=== PATIENT | male | born 1955 | race Caucasian/White ===

== ENCOUNTER → 2017-11-19 | Outpatient (CLI) | payer OTHER ==
[~2017-11-19] MED LIST: IOPAMIDOL 370 MG/ML 200 ML INFUS..BTL INJ ONE; SODIUM CHLORIDE 0.9% 50ML 50 ML ONE
[2017-11-19 12:38] LABS: BLOOD UREA NITROGEN 13 mg/dL (8-26); BUN/CREATININE RATIO 13 (6-25); EST GLOMERULAR FILTRATION RATE > 60 ML/MIN (60-)
--- NOTE | 2017-11-19 13:29 | Diagnostic Imaging Report ---
PROCEDURE:CT ABDOMEN WITH CONTRAST COMPARISON:None. INDICATIONS:FATTY LIVER TECHNIQUE:Routine protocol Volumetric CT abdomen and pelvis after administration of 100 mL Isovue-370 intravenous contrast. Multiplanar reformatted images. DLP: 401.78 FINDINGS: Clear lung bases. No pleural effusions. Normal heart size. Liver: Diffuse low-attenuation (62 HU). Smooth margin. Midclavicular craniocaudal span 11 cm. Gallbladder: Normal Pancreas: Normal Spleen: Normal. Span 12 cm (140 HU). Adrenal glands: Normal Kidneys: Normal Bowel: Image segments are normal Peritoneum: Normal Vasculature: Normal caliber. There is mild ostial calcification at the celiac and renal arteries. Lymph nodes: Normal Skeleton: Intact. Degenerative disc disease at L4-L5 with complete loss of disc space height. Soft tissues: Fat-containing umbilical hernia. Otherwise, normal CONCLUSION: Hepatic steatosis without evidence of cirrhosis or portal hypertension. Dictated by: Zion Mayes M.D. on 11/19/2017 at 13:28 Electronically approved by: Zion Mayes M.D. on 11/19/2017 at 13:28
--- NOTE | 2017-11-19 18:49 | Diagnostic Imaging Report ---
Exam: Neck MRI without IV contrast History: Thyroid cyst seen on ultrasound. Comparison studies: None. Technique: Sagittal, axial and coronal T1 weighted, axial and coronal STIR and axial DWI. IV contrast: None Findings: Evaluation of the soft tissues is somewhat limited in the absence of IV contrast. Evaluation of the thyroid gland is also limited by pulsation artifact on the axial STIR sequence. In spite of this limitation: Airway: Patent Masses: None. Lymph nodes: No radiographically significant adenopathy. Vessels: The carotid and vertebral arteries as well as the jugular veins are patent. Glands: Submandibular: Normal in size and homogeneous. No masses. Parotid: Normal in size and homogeneous. No masses. Thyroid: Normal in size and homogeneous. No mass identified. Reported thyroid cyst is not visualized on MRI. Orbits: The globes are grossly intact. There are no intra-or extraconal abnormalities. The extraocular muscles and optic nerves are symmetric. Included paranasal sinuses: Clear aside from mild mucosal thickening along the maxillary sinus alveolar recesses. Vasculature: The flow voids of the vertebral arteries and carotid arteries are maintained. Temporal bones: No abnormal T2 hyperintense signal changes. Skull base and included facial bones: No bone marrow abnormalities. Cervical spine: Mildly degenerated C5-C6 and C6-C7 discs with disc ossify complexes which indent the thecal sac but do not result in canal stenosis. Moderate right and mild left foraminal stenosis at C5-C6 due to uncovertebral arthrosis. Mild bilateral foraminal stenosis at C6-C7 due to uncovertebral arthrosis. IMPRESSION: 1. No mass identified. 2. Specifically, no thyroid lesion is identified by MRI. Reported thyroid cyst may be present but not visualized by MRI. Follow-up thyroid ultrasound could be performed to document stability. Signed by: Dr. Alessandro Lawrence M.D. on 11/19/2017 6:45 PM
== END ==
LOC: MRI 10:42
PROVIDERS: ATTEND Family Medicine
DX: K76.0 Fatty (change of) liver, not elsewhere classified (principal); N20.0 Calculus of kidney; E04.1 Nontoxic single thyroid nodule; E78.5 Hyperlipidemia, unspecified
CPT/HCPCS: 36415; 70540; 74160; 82565; 84520; Q9967

== ENCOUNTER → 2017-12-10 | Outpatient (CLI) | payer OTHER ==
--- NOTE | 2017-12-10 17:13 | Diagnostic Imaging Report ---
PROCEDURE: US THYROID COMPARISON: None. INDICATIONS:THYROID NODULE/CYST TECHNIQUE: Transverse and longitudinal oliver-scale sonographic images of the thyroid were obtained and supplemented with color doppler. FINDINGS: Right thyroid lobe: 4.7 x 1.8 x 1.5 cm, normal in size. Left thyroid lobe: 3.9 x 1.6 x 1.6 cm, normal in size. Inferior pole 0.5 x 0.4 x 0.5 cm anechoic cyst (TR1). Isthmus: 0.4 cm in thickness, normal in size. CONCLUSION: Left thyroid lobe 0.5 cm cyst which does not meet criteria for FNA or imaging follow up according to ACR 2017 TI-RADS guidelines. Dictated by: Dani Ibrahim M.D. on 12/10/2017 at 17:13 Electronically approved by: Dani Ibrahim M.D. on 12/10/2017 at 17:13
== END ==
LOC: US 16:07
PROVIDERS: ATTEND Family Medicine
DX: E07.9 Disorder of thyroid, unspecified (principal)
CPT/HCPCS: 76536

== ENCOUNTER 2021-06-03 22:01 | Observation (INO) | payer MEDICARE, OTHER ==
[~2021-06-03] VITALS: Ht 170.2 cm; Wt 81.6 kg
[2021-06-03 22:45] LABS: BASOPHILS % 0.4 % (0.0-1.0); EOSINOPHILS # (AUTO) 0.1 (0.0-0.4); EOSINOPHILS % 0.9 % (0.0-6.0); HEMATOCRIT 43.5 % (38.2-49.6); HEMOGLOBIN 13.9 g/dL (14.0-18.0); LYMPHOCYTES # (AUTO) 1.2 (1.0-3.2); LYMPHOCYTES % 17.9 % (18.0-39.1); MEAN CORPUSCULAR HEMOGLOBIN 30.8 pg (28-32); MEAN CORPUSCULAR VOLUME 96.2 fL (81-99); MONOCYTES # (AUTO) 0.3 (0.2-0.8); MONOCYTES % 4.4 % (4.4-11.3); NEUTROPHILS # (AUTO) 5.2 (2.1-6.9); PLATELET COUNT 185 x10e3/uL (140-360); RED BLOOD COUNT 4.52 x10e6/uL (4.3-5.7)
[2021-06-03 23:05] LABS: ALANINE AMINOTRANSFERASE 38 IU/L (0-55); ALBUMIN 4.4 g/dL (3.5-5.0); ALBUMIN/GLOBULIN RATIO 1.5 (0.8-2.0); ALKALINE PHOSPHATASE 45 IU/L (40-150); ANION GAP 16.7 mmol/L (8-16); BLOOD UREA NITROGEN 15 mg/dL (7-26); BUN/CREATININE RATIO 15 (6-25); CALCIUM 9.4 mg/dL (8.4-10.2); CARBON DIOXIDE 25 mmol/L (22-29); CHLORIDE 103 mmol/L (98-107); CREATINE KINASE 63 IU/L (30-200); CREATININE, SERUM 0.99 mg/dL (0.72-1.25); EST GLOMERULAR FILTRATION RATE 75 ML/MIN (60-); GLUCOSE 129 mg/dL (74-118); POTASSIUM 3.7 mmol/L (3.5-5.1); SODIUM 141 mmol/L (136-145)
[2021-06-03] MEDS ORDERED: ASPIRIN 81 MG CHEW TAB PO ONE (23:30)
[2021-06-03] MEDS ORDERED: SODIUM CHLORIDE FLUSH 10 ML SYR INJ PRN (23:30)
[2021-06-03] MEDS ORDERED: HYDRALAZINE HCL 20 MG/ML VIAL IV PRN (23:30)
[2021-06-04 01:48] VITALS: BP 131/78
[2021-06-04 01:54] VITALS: BP 131/78
[2021-06-04] MEDS ORDERED: PROTONIX20 MG PO (02:09)
[2021-06-04] MEDS ORDERED: ATORVASTATIN CA40 MG PO (02:09)
[2021-06-04 04:49] VITALS: BP 131/78
[2021-06-04 05:14] VITALS: BP 160/89
[2021-06-04 07:33] LABS: CHOL/HDL RATIO 2.5 (3.9-4.7); CREATINE KINASE 51 IU/L (30-200)
[2021-06-04 07:52] VITALS: BP 157/87
[2021-06-04] MEDS ORDERED: DOCUSATE SODIUM 100 MG CAP PO PRN (09:15)
[2021-06-04 11:26] VITALS: BP 142/83
[2021-06-04] MEDS ORDERED: HYDRALAZINE HCL 25 MG TAB PO SCH (14:00)
[2021-06-04 15:21] LABS: CREATINE KINASE 50 IU/L (30-200)
[2021-06-04] MEDS ORDERED: ZOLPIDEM TARTRATE 5 MG TAB PO PRN (21:00)
[2021-06-04] MEDS ORDERED: NON-FORMULARY MEDICATION (Atorvastatin Calcium 40 MG) PO SCH (21:00)
[2021-06-05] MEDS ORDERED: PANTOPRAZOLE SOD 40 MG TABEC PO SCH (09:00)
== END 2021-06-04 14:47 | disposition home or self-care (01) ==
LOC: ER 22:06 → ERHOLD 23:41 → MED/SURG2 06-04 01:21
PROVIDERS: ADMIT Internal Medicine; ATTEND Internal Medicine
DX: R00.1 Bradycardia, unspecified (principal); I10 Essential (primary) hypertension; K21.9 Gastro-esophageal reflux disease without esophagitis; E87.5 Hyperkalemia; Z20.822 Contact with and (suspected) exposure to COVID-19; E78.5 Hyperlipidemia, unspecified
CPT/HCPCS: 36415 ×2; 71045; 80053; 80061; 82550 ×2; 82553 ×2; 84443; 84484 ×2; 85025; 93005; 93306; 99283; G0378 ×2; J0360; U0002